=== PATIENT | female | born 1980 | race Caucasian/White ===

== ENCOUNTER 2019-05-22 15:00 | Emergency (ER) | payer MEDICAID ==
[~2019-05-22] VITALS: Ht 165.1 cm; Wt 59.0 kg
[2019-05-22 15:46] VITALS: BP_SYST 136
--- NOTE | 2019-05-22 15:52 | NUR ---
PATIENT TO WAITING ROOM; STABLE/ UNCHANGED
--- NOTE | 2019-05-22 17:50 | NUR ---
MSE completed by myself.
--- NOTE | 2019-05-22 18:30 | NUR ---
Placed in Hallway chair 1.
--- NOTE | 2019-05-22 19:00 | NUR ---
Kavon HOLLOWAY GUIDE TOUR BEDSIDE FOR PT UPDATE
--- NOTE | 2019-05-22 19:05 | NUR ---
PT BIB FAMILY TO ED NEEDING TO BE evaluated for of acute, constant, right hand pain and swelling for two days after she accidently stuck her hand in an industrial fan.
[2019-05-22 19:30] VITALS: BP_SYST 132
--- NOTE | 2019-05-22 19:30 | NUR ---
Patient given written and verbal discharge instructions and verbalizes understanding. ER MD discussed with patient the results and treatment provided. Patient in stable condition. ID arm band removed. Rx of Tylenol Extra strength, bactrim DS and Bacitracin ointment given. Patient educated on pain management and to follow up with PMD. Pain Scale 0/10. Opportunity for questions provided and answered.
== END 2019-05-22 19:30 | disposition home or self-care (01) ==
LOC: SED 15:00
DX: S62.314A Displaced fracture of base of fourth metacarpal bone, right hand, initial encounter for closed fracture (principal); S60.511A Abrasion of right hand, initial encounter; R03.0 Elevated blood-pressure reading, without diagnosis of hypertension; W22.8XXA Striking against or struck by other objects, initial encounter; Y93.89 Activity, other specified; Y92.89 Other specified places as the place of occurrence of the external cause; Y99.8 Other external cause status
CPT/HCPCS: 73140-TC; 99283